=== PATIENT | male | born 1970 | race Caucasian/White ===

== ENCOUNTER → 2017-10-28 | Outpatient (CLI) | payer OTHER ==
[~2017-10-28] MED LIST: ALB6.7R INH; ATOR40TA24 PO; DOCU-416 PO; FEXO1TAB60 PO; HYDR-385 PO; HYDR2TAB74 PO; IBUP600T22 PO; KET10 PO; MONT10TA PO; ONDA4TAB PO; ONDA4TAB9 PO; OXYB10TA21 PO; OXYC-865 PO; PANT40TA65 PO; PER PO; PHEN200T32 PO; PROM-110 PO; QUET25TA30 PO; STATIN PO; TAMS0.4C25 PO; TAMS0.4C70 PO
[2017-10-28 11:23] LABS: PLATELET COUNT, AUTOMATED 224 K/uL (150-450)
--- NOTE | 2017-10-28 11:28 | EKG ---
FACILITY: [facility] PATIENT NAME: PHIL MONTANA : [id number] MR: [id number]: [id number] EXAM DATE: ORDERING PHYSICIAN: DAVIE PAREDES TECHNOLOGIST: Test Reason : Blood Pressure : / mmHG Vent. Rate : 096 BPM Atrial Rate : 096 BPM P-R Int : 146 ms QRS Dur : 094 ms QT Int : 332 ms P-R-T Axes : 049 007 022 degrees QTc Int : 419 ms Normal sinus rhythm Normal ECG When compared with ECG of 28-JAN-2016 07:50, Previous ECG has undetermined rhythm, needs review Confirmed by JOHANA MATTHEWS ([id number]) on 10/28/2017 11:27:58 AM Referred By: Confirmed By:JOHANA MATTHEWS
[2017-10-28 12:00] LABS: LDL CHOLESTEROL 96 mg/dl
== END ==
LOC: RESP 11:06
PROVIDERS: ATTEND Nurse Practitioner Family
DX: R07.9 Chest pain, unspecified (principal); I10 Essential (primary) hypertension; E11.9 Type 2 diabetes mellitus without complications; E78.5 Hyperlipidemia, unspecified
CPT/HCPCS: 36415; 82040; 82247; 82310; 82374; 82435; 82465; 82565; 82947; 83036; 83718; 84075; 84132; 84155; 84295; 84450; 84460; 84478; 84484; 84520; 85025; 93005